=== PATIENT | female | born 1980 | race Two or more races ===

== ENCOUNTER → 2024-05-25 | Outpatient (CLI) | payer MEDICAID, SELFPAY ==
--- NOTE | 2024-05-25 08:45 | XR_ITS ---
Examination: Screening digital mammography, bilateral Computer aided detection 3-D breast Tomosynthesis, bilateral Date and time of exam: May 25, 2024 0914 hours INDICATIONS: Screening, family history breast cancer Technique: Nonmagnified MLO, CC views of the breasts to been obtained, reconstructed from 3-D Tomosynthesis images. R2 computer aided detection program utilized for evaluation of suspicious masses and/or abnormal calcifications. 3-D Tomosynthesis images obtained. Findings: The breasts are heterogeneously dense, which may obscure small masses 10 mm oval mass upper outer right breast posterior depth Benign calcifications Implants intact Impression: BI-RADS Category 0: Incomplete: Need additional imaging evaluation 10 mm oval mass upper outer right breast posterior depth, recommend follow-up spot tomographic views of this mass as well as right breast sonography to complete the workup
== END | disposition home or self-care (01) ==
LOC: CDIM 08:53
PROVIDERS: Referring Provider Nurse Practitioner Women's Health; Visit Provider Nurse Practitioner Women's Health
DX: Z12.31 Encounter for screening mammogram for malignant neoplasm of breast (principal); R92.8 Other abnormal and inconclusive findings on diagnostic imaging of breast; N63.11 Unspecified lump in the right breast, upper outer quadrant
CPT/HCPCS: 77063; 77067

== ENCOUNTER → 2024-07-07 | Outpatient (CLI) | payer MEDICAID, SELFPAY ==
--- NOTE | 2024-07-07 09:30 | XR_ITS ---
Examination: Breast ultrasound, unilateral, right complete Date and time of exam: July 07, 2024 1019 hours INDICATIONS: Mammogram February 24, 2024 10 mm oval mass upper outer Technique: Real-time rivas scale ultrasonographic imaging performed right breast including all 4 quadrants as well as nipple retroareolar and axillary region. Findings: 10:00 cyst 8 x 7 mm No solid nodule IMPRESSION: BI-RADS Category 2: Benign findings
--- NOTE | 2024-07-07 10:00 | XR_ITS ---
Examination: Diagnostic digital mammography, unilateral, right Computer aided detection 3-D breast Tomosynthesis, unilateral Date and time of exam: July 07, 2024 1046 hours INDICATIONS: Mammogram May 25, 2024 10 mm oval mass upper outer right breast posterior depth Technique: Nonmagnified MLO, CC views of the right breast have been obtained, reconstructed from 3-D Tomosynthesis images. R2 computer aided detection program utilized for evaluation of suspicious masses and/or abnormal calcifications. 3-D Tomosynthesis images obtained. Findings: The breast is heterogeneously dense, which may obscure small masses No suspicious mass is depicted on the spot compression views Right breast sonogram today demonstrates 10:00 benign cyst Impression: BI-RADS category 2: Benign findings Return to yearly follow-up mammography
== END | disposition home or self-care (01) ==
PROVIDERS: PCP Nurse Practitioner Family; Referring Provider Nurse Practitioner Family; Visit Provider Nurse Practitioner Family
DX: R92.321 Mammographic fibroglandular density, right breast (principal); N60.01 Solitary cyst of right breast
CPT/HCPCS: 76641; 77061; 77065; G0279

== ENCOUNTER → 2024-09-03 | Outpatient (CLI) | payer MEDICAID, SELFPAY ==
--- NOTE | 2024-09-03 15:00 | XR_ITS ---
Examination: Breast ultrasound, unilateral, right complete Date and time of exam: September 03, 2024 1517 hrs. Indications: History breast cystic disease Technique: Real-time rivas scale ultrasonographic imaging performed right breast including all 4 quadrants as well as nipple retroareolar and axillary region. Findings: 9:00 cyst 5 x 5 mm 10:00 cyst 4 x 4 millimeter 10:00 nodule, irregular, lobular margins 18 x 4 x 9 mm Impression: BI-RADS Category 3: Probably benign findings One additional 6 month right breast sonogram follow-up is needed to document stability of 10:00 nodule described above
--- NOTE | 2024-09-03 15:55 | XR_ITS ---
Examination: Wrist, left 3 views Technique: Wrist AP, oblique, lateral 3 views Date and time of exam: September 03, 2024 1557 hrs. Indications: Mass on the left hand fourth digit 3 years Findings: Mild osteopenia Mild narrowing joints of the wrist No fracture No bony exostosis No opaque foreign body Impression: No fracture No opaque foreign body
--- NOTE | 2024-09-03 15:55 | XR_ITS ---
Examination: Hand, left 3 views Technique: Hand AP, oblique, lateral 3 views Date and time of exam: September 03, 2024 at 1604 hrs. Indications: Palpable mass left hand fourth digit 3 years Findings: Mild juxta-articular bone demineralization No bony exostosis No fracture No cortical bone obstruction Impression: No osseous mass identified, consider ultrasound soft tissue follow-up fourth digit
== END | disposition home or self-care (01) ==
PROVIDERS: PCP Nurse Practitioner Family; Referring Provider Nurse Practitioner Family; Visit Provider Nurse Practitioner Family
DX: R22.32 Localized swelling, mass and lump, left upper limb (principal); N63.11 Unspecified lump in the right breast, upper outer quadrant
CPT/HCPCS: 73110; 73130; 76641